=== PATIENT | female | born 1985 | race Caucasian/White ===

== ENCOUNTER 2017-05-07 13:35 | Emergency (ER) | payer MEDICAID ==
[~2017-05-07] VITALS: Ht 162.6 cm; Wt 50.0 kg
[~2017-05-07 13:35] MED LIST: ABCC1C PO; HYDR-3498 PO; IBUP800T25 PO; PRENAT PO
[2017-05-07 13:38] VITALS: Ht 162.6 cm; Wt 50.0 kg
[2017-05-07] MEDS ORDERED: IBUP-1542 PO (14:53)
[2017-05-07] MEDS ORDERED: CEPH-443 PO (14:54)
[2017-05-07] MEDS ORDERED: SULF1TAB31 PO (14:54)
--- NOTE | 2017-05-07 15:03 | ERD ---
ER Documentation Chief Complaint Date/Time DATE: 05/07/17 TIME: 14:57 Chief Complaint POSSIBLE SPIDER BITE LEFT ELBOW HPI This a 32-year-old female who presents to the emergency department today with her for complaints of a spider bite approximately 1 week ago. Patient states that it was really big and last night her squeezed out it. Denies any fevers or chills. States she is taking Tylenol for pain. ROS All systems reviewed and are negative except as per history of present illness. Medications Home Meds Active Scripts Cephalexin* (Keflex*) 500 Mg Capsule, 500 MG PO QID for 7 Days, CAP Prov:MAHOGANY MARIO PA-C 05/07/17 Sulfamethoxazole/Trimethoprim* (Bactrim Ds* Tablet) 1 Each Tablet, 1 TAB PO BID for 7 Days, #14 TAB Prov:MAHOGANY MARIO PA-C 05/07/17 Ibuprofen* (Motrin*) 600 Mg Tab, 600 MG PO Q6, #30 TAB Prov:MAHOGANY MARIO PA-C 05/07/17 Hydrocodone Bit-Acetaminophen* ([place]*) 5-325 Mg Tab, 1 TAB PO Q6 Y for PAIN, # 15 TAB Prov:RENÉ SOLIS PA-C 08/01/15 Ibuprofen* (Motrin*) 800 Mg Tab, 800 MG PO Q6, #30 TAB Prov:RENÉ SOLIS PA-C 08/01/15 Jsxdgzwtztjlj-Uhduihgxpe-Nqfogseb-Codeine* (Fioricet w/Codeine*) [id number] -30MG Cap, 1 CAP PO Q4H Y for PAIN LEVEL 1-5, #20 CAP Prov:ROSALINA JOHNSON NP 04/22/15 Reported Medications Multivit/Min/Fol Ac/Iron/Pren* ( S*) 1 Tab Tab, 1 TAB PO DAILY, TAB 11/15/14 Allergies Allergies: Coded Allergies: No Known Allergy (Verified , 05/07/17) PMhx/Soc History of Surgery: No Anesthesia Reaction: No Hx Neurological Disorder: No Hx Respiratory Disorders: No Hx Cardiac Disorders: No Hx Psychiatric Problems: No Hx Miscellaneous Medical Probl: Yes (UTERINE FIBROIDS) Hx Alcohol Use: No Hx Substance Use: No Hx Tobacco Use: No Smoking Status: Never smoker Physical Exam Vitals Vital Signs Date Time Temp Pulse Resp B/P Pulse Ox O2 Delivery O2 Flow Rate FiO2 05/07/17 13:38 98.1 99 18 118/59 99 Physical Exam Const: NAD Head: Atraumatic Eyes: Normal Conjunctiva ENT: Normal External Ears, Nose and Mouth. Neck: Full range of motion..~ No meningismus. Resp: Clear to auscultation bilaterally Cardio: Regular rate and rhythm, no murmurs Abd: Soft, non tender, non distended. Normal bowel sounds Skin: Left forearm with 1.5 cm area of what appears to be an insect bite with localized erythema. No purulent drainage. No warmth. Neur: Awake and alert Psych: Normal Mood and Affect Procedures/MDM This a 32-year-old female who presents to the emergency department today for concerns of a possible spider bite on her left forearm. Patient is unsure what bit her but she does think that it is a spider. She states that the area was worse a week ago but her squeezed at it last night and it started draining. On physical exam patient has an approximate 1.5 cm area of her left forearm with evidence of an insect bite. There is very mild localized erythema and no purulent drainage at this time. Patient is afebrile and otherwise well- appearing. Do not feel that she requires workup or imaging at this time. Patient was given a prescription for Motrin, Bactrim and Keflex and instructed to return in 48 hours for wound check. I do have low suspicion for sepsis or deep space tracking infection. Her symptoms at this time is consistent with insect bite that appears to be infected Without evidence of any significant cellulitis. At this time the patient is stable for discharge and outpatient management. Patient should follow up with their PCP in the next 1-2 days. They may return to the emergency department sooner for any persistent or worsening of symptoms. Patient understood and agreed with the plan. Departure Diagnosis: Primary Impression: Infected bite wound Condition: Fair Patient Instructions: Insect Sting/Bite, Infected [facility]errals[facility] Usted se jorgensen hecho un examen mdico de control que le indica que no est en leonie condicin que requiera tratamiento urgente en el Departamento de Emergencia. Un estudio ms profundo y el tratamiento de joseph condicin pueden esperar sin ningn riesgo hasta que usted sea atendida/o en el consultorio de joseph mdico o leonie cl albert. Es responsabilidad suya arreglar leonie sajan para el seguimiento del emeli. MANEJO DE CONDICIONES NO URGENTES EN EL FUTURO 1) Si usted tiene un mdico de atencin primaria: Usted debera llamar a joseph mdico de atencin primaria antes de venir al departamento de emergencia. Despus de las horas de consultorio, joseph doctor o joseph asociado/a est disponible por telfono. El mdico o enfermero de errol en el servicio telefnico puede asesorarle por era medio para atender el problema, o emeli contrario se puede programar leonie sajan. 2) Si usted no tiene un mdico de atencin primaria: Llame al mdico o clnica de referencia que aparece abajo khurram las horas de consultorio para hacer leonie sajan para que le vean. CLINICAS: [place] [id number] [phone] [facility] [phone] [facility]. [facility] [phone] [facility] [place] [id number] [phone] [facility] [place] [id number] [phone] [facility]. [phone] [address] Additional Instructions: Llame al doctor MAANA y samreen leonie SAJAN PARA DENTRO DE 1-2 SOTELO.Dgale a la secretaria que nosotros le instruimos hacer esta sajan.Avise o llame si joseph condicin se empeora antes de la sajan. Regresa aqui si peor o no mejor. Take Tylenol or Motrin for pain. Take antibiotics as prescribed. Keep wound clean and dry. Wound check in 48 hours. Apply warm compresses MAHOGANY MARIO PA-C May 07, 2017 15:03
== END 2017-05-07 15:23 | disposition home or self-care (01) ==
LOC: FTE 13:35
DX: S50.362A Insect bite (nonvenomous) of left elbow, initial encounter (principal); W57.XXXA Bitten or stung by nonvenomous insect and other nonvenomous arthropods, initial encounter; Y92.9 Unspecified place or not applicable
CPT/HCPCS: 99284